=== PATIENT | male | born 1960 | race Caucasian/White ===

== ENCOUNTER 2017-09-23 16:14 | Emergency (ER) | payer OTHER ==
[~2017-09-23] VITALS: Ht 177.8 cm; Wt 80.3 kg
[~2017-09-23 16:14] MED LIST: CO Q-10300 MG PO; GLUCOSAMINE CH1 EAC6 PO; KEFLEX500 M1 PO
[2017-09-23 16:21] VITALS: BP 126/74
--- NOTE | 2017-09-23 19:58 | ED GENERAL ADULT ---
History of Present Illness General Chief Complaint: Lower Extremity Injury Stated Complaint: R LEG PAIN Source: patient Exam Limitations: no limitations Vital Signs & Intake/Output Vital Signs & Intake/Output Vital Signs Date Time Temp Pulse Resp B/P B/P Pulse O2 O2 Flow FiO2 Mean Ox Delivery Rate 09/23 1621 97.0 76 20 126/74 97 Room Air ED Intake and Output 09/24 0000 09/23 1200 Intake Total Output Total Balance Patient 177 lb Weight Weight Estimated Measurement Method Allergies Coded Allergies: No Known Allergies (12/27/16) Reconcile Medications Cephalexin (Keflex) 500 MG CAPSULE 1 CAP PO TID Cellulitis Glucosamine/MSM/Chondroitin A (Glucosamine Chondroit MSM Tab) 500 MG-83 MG-400 MG TABLET 1 CAP PO DAILY SUPPLEMENT (Reported) Ubidecarenone (Co Q-10) (Unknown Strength) CAPSULE (Unknown Dose) PO DAILY SUPPLEMENT (Reported) Triage Note: PT TO ED C/O RIGHT KNEE PAIN SINCE LAST NIGHT. STATES HE WAS BENDING AT THE KNEES AND HEARD A POP. HAS BEEN ICING KNEE WITH RELIEF. HAS NOT TRIED OTC MEDS. DECLINING MEDS IN TRIAGE. STATES PAIN IS WORSE WITH WEIGHT BEARING. DECLINING W/C. Triage Nurses Notes Reviewed? yes Onset: Abrupt Duration: day(s): (1), constant, continues in ED, getting worse Timing: single episode today Injury Environment: home Severity: moderate, severe Severity Numbers: 7 No Modifying Factors: none HPI: 57-year-old male with no past medical history presents for evaluation of right knee pain. Patient states that symptoms started about 2 days ago getting worse. The pain is located on the lateral aspect of the right knee and is worse with movement. He states that before the pain started felt a pop while bending down. No swelling no numbness no tingling no hip pain no ankle pain. He does have a history of a cervicitis the left knee but is never any problems in the right. He is not taking any medicine but has been wearing a brace and icing it which has been helping. (Freddy Benitez) Past History Travel History Traveled to [place] past 21 day No Medical History Any Pertinent Medical History? 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 No (Freddy Benitez) Review of Systems Review of Systems Constitutional: Reports: no symptoms. EENTM: Reports: no symptoms. Respiratory: Reports: no symptoms. Cardiovascular: Reports: no symptoms. GI: Reports: no symptoms. Genitourinary: Reports: no symptoms. Musculoskeletal: Reports: see HPI, joint pain, joint swelling, muscle pain, muscle stiffness. Skin: Reports: no symptoms. Neurological/Psychological: Reports: no symptoms. Hematologic/Endocrine: Reports: no symptoms. Immunologic/Allergic: Reports: no symptoms. All Other Systems: Reviewed and Negative (Freddy Benitez) Physical Exam Physical Exam General Appearance: well developed/nourished, no apparent distress, alert, awake Head: atraumatic, normal appearance Eyes: Bilateral: normal appearance, EOMI. Ears, Nose, Throat: hearing grossly normal Neck: normal inspection, supple, full range of motion Respiratory: no respiratory distress Cardiovascular: normal peripheral pulses Peripheral Pulses: 2+ tibialis posterior (R), 2+ tibialis posterior (L) Back: normal inspection, normal range of motion, no vertebral tenderness Extremities: normal inspection, normal range of motion, no edema, THERE IS PAIN TO PALPATION IN THE LATERAL ASPECT OF THE RIGHT KNEE. nO SWELLING RANGE OF MOTION INTACT NO ERYTHEMA. nO CREPITUS. nO CALF SWELLING OR TENDERNESS NEUROVASCULAR SUPPLY INTACT. PAIN IS WORSE WITH LATERAL STRESS Neurologic/Psych: no motor/sensory deficits, awake, alert, oriented x 3, normal gait, normal mood/affect Skin: intact, normal color, warm/dry Core Measures ACS in differential dx? No CVA/TIA Diagnosis: No Sepsis Present: No Sepsis Focused Exam Completed? No (Freddy Benitez) Progress Differential Diagnoses I considered the following diagnoses in my evaluation of the patient: [Knee sprain, osteoarthritis, fracture, ligamentous injury, septic arthritis] Plan of Care: Patient seen and evaluated. He has pain to the lateral aspect of the right knee. Patient is able walk and bear weight. No erythema or swelling. X-ray within normal limits. Advised rest ice elevation compression. Tylenol and ibuprofen for pain. Patient declines any medicine here. Follow-up with primary care doctor he may need physical therapy orthopedics. Discussed return precautions. Patient agrees. Diagnostic Imaging: Viewed by Me: Radiology Read. Discussed w/RAD: Radiology Read. Radiology Impression: PATIENT: KATLYN BAILEY PRESENT AGE: 57 PATIENT ACCOUNT NO: [id number] : 62 LOCATION: [facility] ORDERING PHYSICIAN: Freddy ACUNA SERVICE DATE: 09/23/17 EXAM TYPE: RAD - XRY- KNEE COMPLETE RIGHT EXAMINATION: XR KNEE, RIGHT CLINICAL INFORMATION: Fracture. COMPARISON: None TECHNIQUE: Four views of the right knee. FINDINGS: No fracture or dislocation. Joint spaces are maintained. No joint effusion. IMPRESSION: No fracture or dislocation. DICTATED BY: Clive Castellon MD DATE/TIME DICTATED:09/23 SUPERVISOR INSULATION:JOSEF DATE/TIME TRANSCRIBED:09/23/172035 CONFIDENTIAL, DO NOT COPY WITHOUT APPROPRIATE AUTHORIZATION. <Electronically signed in Other Vendor System> SIGNED BY: Clive Castellon MD 09/23/172041 Initial ED EKG: none (Freddy Benitez) Departure Departure Disposition: HOME OR SELF CARE Condition: Stable Clinical Impression Primary Impression: Right knee pain Qualifiers: Chronicity: acute Qualified Code: M25.561 - Pain in right knee Referrals: Damaris Gonzalez MD (PCP/Family) Additional Instructions: Rest, avoid excessive weightbearing and walking. Keep the knee elevated wear brace and apply ice for 15-20 minutes every few hours. Tylenol and ibuprofen can be used as needed for pain. Make a follow-up with her primary care doctor YOU will likely need physical therapy and MRI if YOUr pain persists. Departure Forms: Customer Survey General Discharge Information (Freddy Benitez) PA/HOSPICE/HOME HEALTH AIDE Co-Sign Statement Statement: ED Attending supervision documentation- [] I saw and evaluated the patient. I have also reviewed all the pertinent lab results and diagnostic results. I agree with the findings and the plan of care as documented in the PA's/HOSPICE/HOME HEALTH AIDE's documentation. [x] I have reviewed the ED Record and agree with the PA's/HOSPICE/HOME HEALTH AIDE's documentation. [] Additions or exceptions (if any) to the PAs/HOSPICE/HOME HEALTH AIDE's note and plan are summarized below: [] (Ishmael VACA,Brandt Sunshine) Critical Care Note Critical Care Note Critical Care Time: non-applicable (Freddy Benitez)
--- NOTE | 2017-09-23 20:42 | RADIOLOGY REPORT ---
EXAMINATION: XR KNEE, RIGHT CLINICAL INFORMATION: Fracture. COMPARISON: None TECHNIQUE: Four views of the right knee. FINDINGS: No fracture or dislocation. Joint spaces are maintained. No joint effusion. IMPRESSION: No fracture or dislocation.
== END 2017-09-23 21:13 ==
LOC: ERH 16:14
DX: M25.561 Pain in right knee (principal)
CPT/HCPCS: 73562-RT